=== PATIENT | female | born 1985 ===

== ENCOUNTER 2017-02-16 09:41 | Emergency (ER) | payer MEDICAID ==
[2017-02-16 10:01] VITALS: BP 120/72; PULSE 92; RESP 18; TEMP 98.7; O2SAT 100; BMI 22.2
--- NOTE | 2017-02-16 10:09 | C.PDOC ---
History Of Present Illness The patient presents to the ED for evaluation of a rash which has been occurring in intermittent episodes for several years. Patient states she had a similar rash in the summer and was treated with steroids and Bendaryl with resolution of her symptoms. Since then, patient states her rash returned 2 months ago. Patient was evaluated in ED 1 month ago and was given antifungal cream. Patient also reports she has been using a "paste of salt" (as per her friend's recommendation) and applying it to the lesions of her right forearm. Patient has noted a few bumps in other places and presents to the ED for further evaluation. Patient reports minimal itching but denies fever, chills, shortness of breath, or changes in appetite. Time Seen by Provider: 02/16/17 09:56 Chief Complaint (Nursing): Abnormal Skin Integrity History Per: Patient History/Exam Limitations: no limitations Onset/Duration Of Symptoms: Intermittent Episodes (several years ) Current Symptoms Are (Timing): Still Present Location Of Injury: Right: Forearm Quality Of Symptoms: Itching (minimal) Additional History Per: Patient Past Medical History Reviewed: Historical Data, Nursing Documentation, Vital Signs Vital Signs: Last Vital Signs Temp 98.7 F 02/16/17 09:50 Pulse 92 H 02/16/17 09:50 Resp 18 02/16/17 09:50 BP 120/72 02/16/17 09:50 Pulse Ox 100 02/16/17 10:51 - Medical History PMH: No Chronic Diseases Surgical History: No Surg Hx - [facility] Procedures BILAT TUBAL DESTRUCT NEC (01/17/15) EPISIOTOMY (07/22/14) MONITORING NOS (07/22/14) INJECT/INFUSE NEC (05/26/13) Family History: States: Unknown Family Hx - Social History Hx Alcohol Use: Yes Hx Substance Use: No - Immunization History Hx Tetanus Toxoid Vaccination: Yes Hx Influenza Vaccination: Yes Hx Pneumococcal Vaccination: Yes Review Of Systems Constitutional: Negative for: Fever, Chills, Other (no changes in appetite ) Respiratory: Negative for: Shortness of Breath Skin: Positive for: Rash (right forearm and diffuse throughout body ) Physical Exam - Physical Exam Appears: Non-toxic, No Acute Distress Skin: Warm, Dry, Rash (Right Forearm: 2.5cm and 1cm round rash with discrete scaling and hyperpigmentation; several other 1mm macules, including 1 on left wrist and 2-3 on upper chest) Head: Atraumatic, Normacephalic Eye(s): bilateral: Normal Inspection Oral Mucosa: Moist Neck: Supple Chest: Symmetrical, No Deformity, No Tenderness Cardiovascular: Rhythm Regular, No Murmur Respiratory: Normal Breath Sounds, No Rales, No Rhonchi, No Wheezing Back: Normal Inspection, No Vertebral Tenderness, No Paraspinal Tenderness Extremity: Normal ROM, Capillary Refill (less than 2 seconds) Pulses: Left Radial: Normal, Right Radial: Normal Neurological/Psych: Oriented x3, Normal Speech, Normal Cognition Gait: Steady ED Course And Treatment O2 Sat by Pulse Oximetry: 100 (on RA) Pulse Ox Interpretation: Normal Medical Decision Making Medical Decision Making: Patient will be given Rx for steroid treatment. Disposition - Disposition Disposition: HOME/ ROUTINE Disposition Time: 10:06 Condition: GOOD Prescriptions: Methylprednisolone [Medrol Dose Pack (21 tabs)] 1 kit PO . DIRECTED #21 packet Stavudine [Zerit] 1 tab PO DAILY #20 cap Instructions: Acute Rash (ED) - Clinical Impression Clinical Impression: Rash - Scribe Statement The provider has reviewed the documentation as recorded by the Scribe (Lindsey Puentes) Provider Attestation: All medical record entries made by the Scribe were at my direction and personally dictated by me. I have reviewed the chart and agree that the record accurately reflects my personal performance of the history, physical exam, medical decision making, and the department course for this patient. I have also personally directed, reviewed, and agree with the discharge instructions and disposition.
== END 2017-02-16 10:20 | disposition home or self-care (01) ==
LOC: C.ER 09:41
DX: R21 Rash and other nonspecific skin eruption (principal)

== ENCOUNTER 2017-12-10 11:28 | Emergency (ER) | payer MEDICAID ==
[2017-12-10 11:42] VITALS: BMI 23.2
[2017-12-10 11:43] VITALS: BP 116/80; PULSE 102; RESP 16; TEMP 98.7; O2SAT 100
--- NOTE | 2017-12-10 12:26 | C.PDOC ---
History Of Present Illness 32 y/o female presents to the ER complaining of nasal congestion and dry cough which has been present for the past 2 days. Patient states that she had sick contacts. Patient does not have any other complaints. Time Seen by Provider: 12/10/17 12:21 Chief Complaint (Nursing): Flu-like Symptoms History Per: Patient History/Exam Limitations: no limitations Onset/Duration Of Symptoms: Days Current Symptoms Are (Timing): Still Present Associated Symptoms: Cough, Nasal Congestion Severity: Moderate Past Medical History Reviewed: Historical Data, Nursing Documentation, Vital Signs Vital Signs: Last Vital Signs Temp 98.7 F 12/10/17 11:42 Pulse 102 H 12/10/17 11:42 Resp 16 12/10/17 11:42 BP 116/80 12/10/17 11:42 Pulse Ox 100 12/10/17 12:26 - Medical History PMH: No Chronic Diseases Denies: Chronic Kidney Disease Surgical History: No Surg Hx - [facility] Procedures BILAT TUBAL DESTRUCT NEC (01/17/15) EPISIOTOMY (07/22/14) MONITORING NOS (07/22/14) INJECT/INFUSE NEC (05/26/13) Family History: States: No Known Family Hx - Social History Hx Alcohol Use: Yes Hx Substance Use: No - Immunization History Hx Tetanus Toxoid Vaccination: No Hx Influenza Vaccination: No Hx Pneumococcal Vaccination: No Review Of Systems Except As Marked, All Systems Reviewed And Found Negative. Constitutional: Negative for: Fever, Chills ENT: Positive for: Nose Congestion Respiratory: Positive for: Cough Gastrointestinal: Negative for: Nausea, Vomiting, Diarrhea Physical Exam - Physical Exam Appears: Non-toxic, No Acute Distress Skin: Normal Color, Warm Head: Atraumatic, Normacephalic Eye(s): bilateral: Normal Inspection, PERRL Ear(s): Bilateral: Normal Nose: Normal Oral Mucosa: Moist Throat: Normal, No Erythema, No Exudate Neck: Supple Chest: Symmetrical Cardiovascular: Rhythm Regular Respiratory: Normal Breath Sounds, No Accessory Muscle Use, No Rales, No Rhonchi , No Wheezing Gastrointestinal/Abdominal: Normal Exam, Soft, No Tenderness Extremity: Normal ROM Neurological/Psych: Oriented x3, Normal Speech, Normal Cognition, Normal Motor, Normal Sensation ED Course And Treatment O2 Sat by Pulse Oximetry: 100 (RA) Pulse Ox Interpretation: Normal Progress Note: Patient given Motrin and Tamiflu. Medical Decision Making Medical Decision Making: prob influenza Disposition Doctor Will See Patient In The: Office Counseled Patient/Family Regarding: Studies Performed, Diagnosis - Disposition Referrals: [facility] [Outside] Disposition: HOME/ ROUTINE Disposition Time: 12:26 Condition: GOOD Additional Instructions: Tamiflu 75 mg twice daily for 5 days Dayquil/Nyquil for symptomatic relief. no work/school until afebrile for 24 hours. Prescriptions: Oseltamivir [Tamiflu] 75 mg PO BID #9 cap Instructions: Influenza (ED) Forms: [facility] (Japanese), Work Excuse - Clinical Impression Clinical Impression: Influenza-like illness - Scribe Statement The provider has reviewed the documentation as recorded by the Carmen Santiago Provider Attestation: All medical record entries made by the Carmen were at my direction and personally dictated by me. I have reviewed the chart and agree that the record accurately reflects my personal performance of the history, physical exam, medical decision making, and the department course for this patient. I have also personally directed, reviewed, and agree with the discharge instructions and disposition.
== END 2017-12-10 12:45 | disposition home or self-care (01) ==
LOC: C.ER 11:28
DX: J11.1 Influenza due to unidentified influenza virus with other respiratory manifestations (principal)